=== PATIENT | female | born 1995 ===

== ENCOUNTER → 2018-03-21 | Outpatient (CLI) | payer OTHER ==
[~2018-03-21] MED LIST: AMPDEX10 PO; Bactrim 400-801 EACH PO; CEPH500; CIPR500 PO; ESCI5 PO; FERRO-TIME325 MG PO; IBUP800 PO; NITR100CA PO; ONDA4; ORTHO MICRONO0.35 MG PO; OXYACE5T PO; PHENA100 PO; Percocet 5-3251 EACH PO; SULTRIDS PO; TRAZONE; Verotin-Gr Cap1 EACH PO
== END | disposition home or self-care (01) ==
LOC: LAB EV 14:51 → LAB SHORT 14:51
DX: J02.9 Acute pharyngitis, unspecified (principal)
CPT/HCPCS: 87070

== ENCOUNTER → 2020-02-19 | Outpatient (CLI) | payer OTHER | LOC: LAB EV 15:19 → LAB SHORT 15:19 | DX: N39.0 Urinary tract infection, site not specified (principal) | CPT/HCPCS: 87086 ==

== ENCOUNTER → 2020-02-27 | Outpatient (CLI) | payer OTHER | END | disposition home or self-care (01) | LOC: LAB EV 18:30 → LAB SHORT 18:30 | DX: R35.0 Frequency of micturition (principal) | CPT/HCPCS: 87086 ==

== ENCOUNTER → 2021-06-25 | Outpatient (CLI) | payer OTHER | END | disposition home or self-care (01) | LOC: LAB SHORT 17:15 → LAB 17:15 | DX: J02.9 Acute pharyngitis, unspecified (principal) | CPT/HCPCS: 87081 ==

== ENCOUNTER → 2021-11-02 | Outpatient (CLI) | payer OTHER | END | disposition home or self-care (01) | LOC: LAB SHORT 16:26 | PROVIDERS: Obstetrics & Gynecology | DX: R87.610 Atypical squamous cells of undetermined significance on cytologic smear of cervix (ASC-US) (principal) | CPT/HCPCS: 88142 ==

== ENCOUNTER 2023-01-24 06:11 | Day surgery (SDC) | payer OTHER ==
[~2023-01-24] VITALS: Ht 170.2 cm; Wt 68.3 kg
[2023-01-24] MEDS ORDERED: ALBU90OI INH (06:42)
--- NOTE | 2023-01-24 08:01 | NUR ---
01/24/23 0801 Shira Davidson POS LOWER PREP CHLORAPREP UPPER PREP
[2023-01-24 09:27] VITALS: BP 113/67
--- NOTE | 2023-01-24 09:53 | NUR ---
01/24/23 0953 Kell Bahena PT C/O NAUSEA WHEN GETTING UP FROM BED TO RECLINER. VERY SMALL AMOUNT FROTHY EMESIS X1. NOW IN RECLINER AND NAUSEA IS GETTING BETTER. EATING SALTINE CRACKERS, DRINKING WATER, AND EATING POPSICLE.
--- NOTE | 2023-01-24 12:36 | NUR ---
01/24/23 1236 Can Bolton PT INITIALLY UNABLE TO VERBALIZE 0-10 PAIN RATING UPON WAKING. FLACC SCALE USED FOR PAIN AT THOSE TIMES.
== END 2023-01-24 10:40 | disposition home or self-care (01) ==
LOC: ORSCSDS 06:11
PROVIDERS: Obstetrics & Gynecology
PROC: 0U5B8ZZ Destruction of Endometrium, Via Natural or Artificial Opening Endoscopic (ICD-10-PCS; principal; 2023-01-24 07:30)
PROC: 0UT74ZZ Resection of Bilateral Fallopian Tubes, Percutaneous Endoscopic Approach (ICD-10-PCS; principal; 2023-01-24 07:30)
DX: N92.1 Excessive and frequent menstruation with irregular cycle (principal); N94.6 Dysmenorrhea, unspecified; Z30.2 Encounter for sterilization; J45.909 Unspecified asthma, uncomplicated; F17.290 Nicotine dependence, other tobacco product, uncomplicated; F90.9 Attention-deficit hyperactivity disorder, unspecified type; F32.A Depression, unspecified; Z79.899 Other long term (current) drug therapy
CPT/HCPCS: 88302; A9270; J0171; J0690; J1100; J1885; J2250; J2405; J2704; J2795; J3010; J7120